=== PATIENT | male | born 1990 | race Caucasian/White ===

== ENCOUNTER 2019-04-29 13:19 | Outpatient (CLI) | payer BC ==
--- NOTE | 2019-04-29 13:47 | RAD ---
XR Chest Pa Lat STANDARD HISTORY: Annual checkup for cystic fibrosis COMPARISON: None. FINDINGS: Heart size and mediastinum are within normal limits. The lungs are clear of any infiltrativ e process. Interstitial markings appear slightly increased parahilar and upper lobe regions. IMPRESSION: No acute changes.
== END 2019-04-29 13:20 | disposition home or self-care (01) ==
LOC: SCSRAD 13:19
DX: E84.9 Cystic fibrosis, unspecified (principal)
CPT/HCPCS: 71046